=== PATIENT | female | born 1960 | race Two or more races ===

== ENCOUNTER → 2020-05-06 08:00 | Outpatient (CLI) | payer OTHER ==
[~2020-05-06 08:00] MED LIST: IRBESARTAN-HCT1 EACH PO
== END | disposition home or self-care (01) ==
LOC: LAB 08:00 → ADM 11:45 → CIR.AMB 05-13 08:30 → EDSTATUS 05-13 11:45
PROVIDERS: ATTEND Colon & Rectal Surgery
DX: U07.1 COVID-19 (principal); K64.2 Third degree hemorrhoids; K92.1 Melena; K64.4 Residual hemorrhoidal skin tags

== ENCOUNTER 2021-05-27 08:56 | Outpatient (CLI) | payer OTHER | END 2021-05-27 09:50 | disposition home or self-care (01) | LOC: SONOGRAMA 08:56 | PROVIDERS: ATTEND Pathology Anatomic Pathology & Clinical Pathology | DX: E04.1 Nontoxic single thyroid nodule (principal) ==